=== PATIENT | male | born 1950 | race African-American/Black ===

== ENCOUNTER → 2023-11-29 | Day surgery (SDC) | payer OTHER, MEDICAID ==
[~2023-11-29] VITALS: Ht 185.4 cm; Wt 74.4 kg
[~2023-11-29] MED LIST: ACET-1882 PO; ALBUAER3 IN; AMLO1TAB23 PO; CHOL20004 PO; LIDOCAINE HCL 100 MG/5ML (2%) SYRG INJ IV ONE; LISI20TA56 PO; LORA10TA6 PO; OMEGCAP2 OR; PROPOFOL 10 MG/ML 20 ML IV ONE; TAMS-35 PO
[2023-11-29 08:26] VITALS: PULSE 57; RESP 17; TEMP 98.2; O2SAT 100
[2023-11-29 09:11] VITALS: BP 137/98; PULSE 60; RESP 15; O2SAT 99
== END | disposition home or self-care (01) ==
LOC: GI 07:05
PROVIDERS: ATTEND Internal Medicine Gastroenterology
DX: R19.5 Other fecal abnormalities (principal); K57.30 Diverticulosis of large intestine without perforation or abscess without bleeding; I10 Essential (primary) hypertension; Z87.442 Personal history of urinary calculi; Z85.46 Personal history of malignant neoplasm of prostate; Z79.899 Other long term (current) drug therapy; Z87.891 Personal history of nicotine dependence
CPT/HCPCS: 45378; J2704; J7030